=== PATIENT | male | born 2000 | race Caucasian/White ===

== ENCOUNTER 2023-07-20 14:36 | Emergency (ER) | payer BC, SELFPAY ==
--- NOTE | 2023-07-20 14:37 | ED.SKABFB ---
HPI - Skin/Abscess/Foreign Bdy General Chief complaint: Skin/Abscess/Foreign Body Stated complaint: Tick bite Time Seen by Provider: 07/20/23 14:39 Source: patient and RN notes reviewed Mode of arrival: ambulatory Limitations: no limitations History of Present Illness HPI narrative: Patient is a 23-year-old male who presents to the [facility] with complaints of tick bite to the right thigh with surrounding redness. Patient believes that he was bit by a tick on Tuesday. He removed the tick on Tuesday. He presents to the [facility] with what appears to be a tick bite with surrounding localized erythema. He denies any other symptoms. Review of Systems Review of Systems: CONSTITUTIONAL: Denies fever, chills, or sweats. EYES: Denies visual changes, redness, or discharge. ENT: Denies otalgia and sore throat CARDIOVASCULAR: Denies chest pain, palpitations, or edema. RESPIRATORY: Denies cough or dyspnea. GASTROINTESTINAL: Denies abdominal pain, nausea, vomiting, or diarrhea. GENITOURINARY: Denies dysuria or hematuria. SKIN: Denies rash or itching. Insect bite to right thigh. MUSCULOSKELETAL: Denies back pain, joint pain, or myalgia. NEUROLOGIC: Denies headache, numbness, or weakness. Pertinent positives per HPI. PMFSH Comments At the time of my signature, I reviewed and agree with the nursing past medical, surgical, social, and family history. There is no relevant family history pertinent to the patient complaint. Exam Narrative: GENERAL: This is a well-nourished, well-developed patient, in no apparent distress. HEAD: normocephalic, atraumatic. EYES: PERRL. Sclera clear/white. Vision is grossly intact. EARS: External ears normal, auditory canals clear and without drainage, TMs normal without perforation. Hearing grossly intact. NOSE: External nose normal with no obvious nasal discharge, nares without redness, no rhinorrhea. THROAT: Mucous membranes moist, posterior pharynx clear. NECK: Neck supple, non-tender without lymphadenopathy, masses or thyromegaly. CARDIOVASCULAR: Regular rate and rhythm without murmurs, gallops, or rubs. RESPIRATORY: Clear to auscultation. Breath sounds equal bilaterally. No wheezes, rales, or rhonchi. GASTROINTESTINAL: Abdomen soft, non-tender, nondistended. Bowel sounds are active. No hepato-splenomegaly, or palpable masses. No guarding. SKIN: 1.5 cm area of erythema to right thigh; consistent with tick bite with surrounding erythema/localized reaction. No bull's eye rash present. NEURO: awake, alert, and oriented to person, place and time. There were no obvious focal neurologic abnormalities. EXTREMITIES: No clubbing, cyanosis, or edema. No joint tenderness, effusion, or edema noted. BACK: Nontender without deformity or crepitance. No flank tenderness. Course Course Level of Care: Express Care Visit Vital Signs Vital signs: Vital Signs Temperature 98.2 F 07/20/23 14:56 Pulse Rate 105 H 07/20/23 14:56 Respiratory Rate 16 07/20/23 14:56 Blood Pressure 120/65 07/20/23 14:56 Pulse Oximetry 100 07/20/23 14:56 Temperature 98.2 F 07/20/23 14:56 Pulse Rate 105 H 07/20/23 14:56 Respiratory Rate 16 07/20/23 14:56 Blood Pressure 120/65 07/20/23 14:56 Pulse Oximetry 100 07/20/23 14:56 Reviewed MDM - Skin/Abscess/Foreign Bdy MDM Narrative Medical decision making narrative: Take medication as prescribed. Return if you developed bull's-eye rash as you may require additional medication. Patient will be given prophylactic dosing of doxycycline due to recent tick bite. He believes that the tick attached on Tuesday and he removed the tick yesterday. Differential Diagnosis Differential diagnosis: Likely cellulitis, insect bites and other (tick bite) Critical Care Time Critical Care Time Critical Care Time: No Discharge Plan Discharge Clinical Impression: Tick bite of right thigh with local reaction Qualifiers: Encounter type: initial encounter Qualified Code(
[2023-07-20 14:56] VITALS: BP 120/65; PULSE 105; RESP 16; TEMP 36.8; O2SAT 100
== END 2023-07-20 15:17 | disposition home or self-care (01) ==
PROVIDERS: Emergency Provider Nurse Practitioner
DX: S70.361A Insect bite (nonvenomous), right thigh, initial encounter (principal); W57.XXXA Bitten or stung by nonvenomous insect and other nonvenomous arthropods, initial encounter
CPT/HCPCS: 99213; G0463